=== PATIENT | male | born 1955 | race Caucasian/White ===

== ENCOUNTER 2018-10-04 16:34 | Inpatient (IN) | payer BC ==
[~2018-10-04] VITALS: Ht 180.3 cm; Wt 80.7 kg
--- NOTE | ~2018-10-04 | EXE ---
[facility] [address] [place] [address] STRESS ECHOCARDIOGRAM Name: GABE SINGH Room #: 209-P ADM IN M.R.#: [id number] Admission: 10/04/18 Attend Phys: Harrison Nicholson Discharge: Date of : 55 Date of Service: 10/05/18 1017 Report #: [id number] THIS REPORT FOR: //name// APPROVED REPORT Study performed: 10/05/2018 09:17:45 Exam: Stress Echocardiogram Indication: Chest pain Patient Location: Echo lab Stress Nurse: Reed Pike NP Room #: 209 Ht: 5 ft 11 in HR: 62 bpm BP: 124/77 mmHg Rhythm: NSR Medical History Medical History: CAD non obstructive Allergies: Iodine Cardiac Risk Factors: Strong family history Procedure The patient underwent an Exercise Stress Test using the Josef Protocol. Blood pressure, heart rate, and EKG were monitored. An Echocardiogram was performed by parts identification technician in four stages in quad fashion. At peak stress, four selected images were obtained and placed side by side with resting images for comparison. Stress Test Details Stress Test: Exercise stress testing was performed using a Josef protocol. HR Resting HR: 62 bpm Max Heart Rate (APMHR): 158 bpm Max HR Achieved: 164 bpm Target HR (85% APMHR): 134 bpm % of APMHR: 103 Recovery HR: 80 bpm HR response to stress: Normal HR response to stress BP Resting BP: 124/77 mmHg Max BP: 164/82 mmHg Recovery BP: 144/80 mmHg BP response to stress: Normal blood pressure response to stress. [facility] [address] [place] [address] STRESS ECHOCARDIOGRAM Name: GABE SINGH Room #: 209-P [facility] IN M.R.#: [id number] Admission: 10/04/18 Attend Phys: Harrison Nicholson Discharge: Date of : 55 Date of Service: 10/05/18 1017 Report #: [id number] ECG Clinical Reason for Termination: Completed protocol Exercise duration: 12 min sec Highest Stage Achieved: Stage 4: 4.2 mph at 16% grade. Exercise capacity: 13.4 METs Pre-Stress Echo The resting Echocardiogram showed normal left ventricular contractility with an estimated Ejection Fraction of about 55%. No significant valvular abnormalities. Post-Stress Echo The stress Echocardiogram showed normal left ventricular contractility with an estimated Ejection Fraction of about >70%. Conclusion Clinical Response: Non-ischemic Exercise Capacity: Superior Stress ECG Response: Non-ischemic Stress Echo Images: Non-ischemic Other Information Study Quality: Good <ELECTRONICALLY SIGNED> By: Barry Aguilar MD, FACC 10/05/18 1017 1017 Barry Aguilar MD, FACC /INF
--- NOTE | ~2018-10-04 | EKG ---
[address] [place] [address] ELECTROCARDIOGRAM REPORT Name: GABE SINGH Room #: 209-P ADM IN M.R.#: [id number] Admission: 10/04/18 Attend Phys: Harrison Britton Discharge: Date of : 55 Report #: [id number] THIS REPORT FOR: //name// [facility] ED Test Date: 2018-10-04 Test Time: 16:47:53 Pat Name: GABE SINGH Department: Room: 209 Gender: M Mailroom Manager: CHRISTIANA : 1955 Requested By: Roly Frost Order Number: [id number] MD: Miquel Titus Measurements Intervals [place] Rate: 55 P: 39 IN: 159 QRS: 19 QRSD: 102 T: 0 QT: 404 QTc: 387 Interpretive Statements Sinus bradycardia Otherwise normal tracing No previous ECG available for comparison Electronically Signed On 10-05-2018 7:48:53 [employer] by Miquel Titus [email or web address] <ELECTRONICALLY SIGNED> By: Miquel Titus MD, [facility] 10/05/18 0748 1647 1647 Miquel Titus MD, FAC /EPI
--- NOTE | ~2018-10-04 | 2DMMODE ---
[facility] [address] [place] [address] 2 D/M-MODE ECHOCARDIOGRAM Name: GABE SINGH Room #: 209-P ADM IN M.R.#: [id number] Admission: 10/04/18 Attend Phys: Harrison Nicholson Discharge: Date of : 55 Date of Service: 10/05/18911 Report #: [id number] THIS REPORT FOR: //name// APPROVED REPORT Study performed: 10/05/2018 08:37:21 EXAM: Comprehensive 2D, Doppler, and color-flow Echocardiogram Patient Location: Echo lab Room #: 209 Status: routine BSA: 2.01 HR: 52 bpm BP: 124/77 mmHg Rhythm: NSR Other Information Study Quality: Good Indications Chest Pain Hx: CAD, HLP, HTN 2D Dimensions RVDd: 38.10 mm IVSd: 8.57 (7-11mm) LVOT Diam: 22.45 (18-24mm) LVDd: 47.74 mm PWd: 8.45 (7-11mm) Ascending Ao: 39.21 (22-36mm) LVDs: 30.94 (25-40mm) Aortic Root: 39.67 mm Volumes Left Atrial Volume (Systole) Single Plane 4CH: 40.63 mL Single Plane 2CH: 44.11 mL LA ESV Index: 24.00 mL/m2 Aortic Valve AoV Peak Mendel.: 1.20 m/s AO Peak Gr.: 5.80 mmHg LVOT Max P.23 mmHg LVOT Max V: 1.03 m/s GREGORIO Vmax: 3.38 cm2 Mitral Valve E/A Ratio: 1.2 MV Decel. Time: 140.60 ms [facility] [address] [place] [address] 2 D/M-MODE ECHOCARDIOGRAM Name: GABE SINGH Room #: 209-P [facility]#: [id number] Admission: 10/04/18 Attend Phys: Harrison Nicholson Discharge: Date of : 55 Date of Service: 10/05/18 0912 Report #: [id number] MV E Max Mendel.: 0.76 m/s MV A Mendel.: 0.61 m/s MV PHT: 40.78 ms IVRT: 96.89 ms Pulmonary Valve PV Peak Mendel.: 0.96 m/s PV Peak Gr.: 3.66 mmHg Pulmonary Vein P Vein S: 0.62 m/s P Vein A: 0.28 m/s P Vein D: 0.52 m/s P Vein A Dur.: 143.0 msec P Vein S/D Ratio: 1.19 Tricuspid Valve TR Peak Mendel.: 2.08 m/s RAP Estimate: 5.00 mmHg TR Peak Gr.: 17.38 mmHg PA Pressure: 22.00 mmHg Left Ventricle The left ventricle is normal size. There is normal LV segmental wall motion. There is normal left ventricular wall thickness. Left ventricular systolic function is normal. LVEF is 55%. The left ventricular diastolic function is normal. Right Ventricle The right ventricle is normal size. The right ventricular systolic function is normal. Atria The left atrium size is normal. The right atrium size is normal. Aortic Valve The aortic valve is normal in structure. No aortic regurgitation is present. There is no aortic valvular stenosis. Mitral Valve The mitral valve is normal in structure. Mild mitral regurgitation. No evidence of mitral valve stenosis. Tricuspid Valve The tricuspid valve is normal in structure. Mild tricuspid regurgitation. Estimated PAP is 20-25mmHg. Pulmonic Valve The pulmonary valve is normal in structure. Trace pulmonic [facility] [address] [place] [address] 2 D/M-MODE ECHOCARDIOGRAM Name: FRANCISCOGABE Room #: 209-P [facility] IN M.R.#: [id number] Admission: 10/04/18 Attend Phys: Harrison Nicholson Discharge: Date of : 55 Date of Service: 10/05/18 0912 Report #: [id number] regurgitation. Great Vessels Aortic root is dilated at 4.0cm Ascending aorta is dilated at 3.9cm, maybe larger. Difficult to image IVC is normal in size and collapses >50% with inspiration. Pericardium There is no pericardial effusion. <Conclusion> Left ventricular systolic function is normal. There is normal LV segmental wall motion. LVEF 55%. The aortic valve is normal in structure. No aortic regurgitation or stenosis The mitral valve is normal in structure. Mild mitral regurgitation. Mild tricuspid regurgitation. Estimated pulmonary artery pressure of 20-25mmHg. Ascending aorta is dilated at 3.9cm, maybe larger. Difficult to image There is no pericardial effusion. <ELECTRONICALLY SIGNED> By: Miquel Titus MD, FACC 10/05/18911 1 1 Miquel Titus MD, FACC /INF
--- NOTE | ~2018-10-04 | EKG ---
[address] [address] ELECTROCARDIOGRAM REPORT Name: GABE SINGH Room #: 209-P ADM IN M.R.#: [id number] Admission: 10/04/18 Attend Phys: Harrison Britton Discharge: Date of : 55 Report #: [id number] THIS REPORT FOR: //name// [facility] Test Date: 2018-10-05 Test Time: 06:38:18 Pat Name: GABE SINGH Department: Room: 209 P Gender: M Fire Apparatus Engineer: KENDRA : 1955 Requested By: Shantelle Foster Order Number: [id number] MD: Miquel Titus Measurements Intervals [place] Rate: 56 P: 53 GA: 153 QRS: 35 QRSD: 98 T: 11 QT: 424 QTc: 410 Interpretive Statements Sinus bradycardia Otherwise normal tracing No previous ECG available for comparison Electronically Signed On 10-05-2018 7:54:57 [employer] by Miquel Titus [email or web address] <ELECTRONICALLY SIGNED> By: Miquel Titus MD, [facility] 10/05/18 0754 0638 0638 Miquel Titus MD, FAC /EPI
[2018-10-04 16:37] VITALS: BP 161/68
[2018-10-04 17:09] LABS: HEMATOCRIT 47.9 % (42.0-52.0)
[2018-10-04 17:11] LABS: ABSOLUTE NEUTROPHILS 3.7 thou/uL (1.4-8.2); BASOPHILS 1.3 % (0.0-2.0); EOSINOPHILS 3.4 % (0.0-3.0); HEMOGLOBIN 16.6 gm/dL (14.0-18.0); LYMPHOCYTES 29.3 % (24.0-44.0); MCH 31.4 pg (26.0-34.0); MCHC 34.6 g/dL (28.0-37.0); MCV 90.7 fL (80.0-100.0); MONOCYTES 7.1 % (1.0-8.0); PLATELET COUNT 228 thou/uL (150-400); POLYS 58.9 % (36.0-66.0); RBC 5.28 mil/uL (4.50-6.00); RDW 13.9 % (10.5-14.5); WBC 6.2 thou/uL (4.0-11.0)
[2018-10-04 17:19] LABS: ANION GAP 5 mmol/L (7-16); BUN 12 mg/dL (7-18); CALCIUM 9.3 mg/dL (8.5-10.1); CHLORIDE 106 mmol/L (98-107); CO2 28 mmol/L (21-32); CREATININE 0.9 mg/dL (0.7-1.3); GLUCOSE 102 mg/dL (74-106); POTASSIUM 3.7 mmol/L (3.5-5.1); SODIUM 139 mmol/L (136-145)
[2018-10-04 17:27] LABS: TROPONIN-I <0.06 ng/mL (<0.06)
[2018-10-04 18:09] VITALS: BP 161/68
[2018-10-04 18:25] VITALS: BP 142/83
[2018-10-04 20:00] VITALS: BP 150/94
[2018-10-05 00:59] VITALS: BP 119/72
[2018-10-05 04:30] VITALS: BP 124/77
[2018-10-05 04:32] LABS: CALCIUM 8.7 mg/dL (8.5-10.1); POTASSIUM 3.7 mmol/L (3.5-5.1)
[2018-10-05 04:34] LABS: CHOLESTEROL 134 mg/dL (<200); HDL CHOLESTEROL 42 mg/dL (>40); LDL CHOLESTEROL 79 mg/dL (<100); TC:HDL 3.2 Ratio (Not establshd); TRIGLYCERIDE 67 mg/dL (<150); VLDL 13 mg/dL (<40)
[2018-10-05 04:36] LABS: SERUM ASSESSMENT Clear
[2018-10-05 07:41] VITALS: BP 122/73
[2018-10-05] MEDS ORDERED: ASPIR 8181 MG PO (09:53)
[2018-10-05] MEDS ORDERED: ATORVASTATIN CA40 MG PO (09:56)
[2018-10-05 10:10] VITALS: BP 122/73
[2018-10-05 10:14] VITALS: BP 122/73
== END 2018-10-05 11:40 | disposition home or self-care (01) | DRG 392 ==
LOC: ER 16:34 → 2N 18:02 → EROBS 18:02 → 2N 18:26
PROVIDERS: Nurse Practitioner Family; Physician Assistant
DX: K21.9 Gastro-esophageal reflux disease without esophagitis (principal); I10 Essential (primary) hypertension; E78.5 Hyperlipidemia, unspecified; I25.10 Atherosclerotic heart disease of native coronary artery without angina pectoris; Z91.041 Radiographic dye allergy status; Z82.49 Family history of ischemic heart disease and other diseases of the circulatory system; I25.2 Old myocardial infarction; Z79.82 Long term (current) use of aspirin; Z79.899 Other long term (current) drug therapy
CPT/HCPCS: 10081

== ENCOUNTER 2019-03-31 02:48 | Emergency (ER) | payer BC ==
[~2019-03-31] VITALS: Ht 180.3 cm; Wt 77.1 kg
[~2019-03-31 02:48] MED LIST: ASPIR 8181 MG PO; ATORVASTATIN CA40 MG PO
[2019-03-31 03:30] LABS: ABSOLUTE NEUTROPHILS 6.5 thou/uL (1.4-8.2); BASOPHILS 0.8 % (0.0-2.0); EOSINOPHILS 2.7 % (0.0-3.0); HEMATOCRIT 48.6 % (42.0-52.0); HEMOGLOBIN 16.3 gm/dL (14.0-18.0); LYMPHOCYTES 17.3 % (24.0-44.0); MCHC 33.7 g/dL (28.0-37.0); MCV 92.2 fL (80.0-100.0); MONOCYTES 6.7 % (1.0-8.0); PLATELET COUNT 233 thou/uL (150-400); POLYS 72.5 % (36.0-66.0); RBC 5.27 mil/uL (4.50-6.00); RDW 14.3 % (10.5-14.5)
[2019-03-31 03:35] LABS: ANION GAP 7 mmol/L (7-16); BUN 18 mg/dL (7-18); CALCIUM 8.5 mg/dL (8.5-10.1); CHLORIDE 102 mmol/L (98-107); CO2 30 mmol/L (21-32); CREATININE 0.9 mg/dL (0.7-1.3); GLUCOSE 120 mg/dL (74-106); POTASSIUM 4.2 mmol/L (3.5-5.1); SODIUM 139 mmol/L (136-145)
[2019-03-31 03:45] LABS: ALBUMIN 3.9 g/dL (3.4-5.0); LIPASE 203 U/L (73-393); SGOT 39 U/L (15-37); SGPT 78 U/L (30-65); TOTAL BILIRUBIN 0.7 mg/dL (<0.1-1.0); TOTAL PROTEIN 6.8 g/dL (6.4-8.2); TROPONIN-I <0.06 ng/mL (<0.06)
[2019-03-31 05:20] LABS: URINE BILIRUBIN NEGATIVE (Negative); URINE BLOOD NEGATIVE (Negative); URINE CLARITY CLEAR; URINE COLOR YELLOW; URINE GLUCOSE-RANDOM* NEGATIVE (Negative); URINE KETONES TRACE (Negative); URINE LEUKOCYTES-REFLEX NEGATIVE (Negative); URINE NITRITE-REFLEX NEGATIVE (Negative); URINE PROTEIN (DIPSTICK) NEGATIVE (Negative)
[2019-03-31] MEDS ORDERED: TRAMADOL 50 MG50 MG PO (05:20)
[2019-03-31 05:55] VITALS: BP 152/84
--- NOTE | 2019-04-01 08:44 | EKG ---
[place] [address] [facility] [place] [address] ELECTROCARDIOGRAM REPORT Name: GABE SINGH Room #: DEP Ko#: [id number] ������������������ Admission: 03/31/19 ������������������ Attend Phys: Discharge: 03/31/19 ������������������ Date of : 55 Report #: [id number] ����������������������������������������������������������������� [id number] THIS REPORT FOR: //name// [facility] ED Test Date: 2019-03-31 Test Time: 03:56:17 Pat Name: GABE SINGH Department: Room: Gender: Surgical Dental Assistant: Lino Ko : 1955 Requested By: Martín Anguiano Order Number: [id number] MD: Bruce Grider Measurements Intervals [place] Rate: 52 P: 56 NM: 161 QRS: 33 QRSD: 106 T: 18 QT: 443 QTc: 412 Interpretive Statements Sinus rhythm Compared to ECG 10/05/2018 06:38:18 Sinus bradycardia no longer present Electronically Signed On 04-01-2019 8:44:13 CDT by Bruce Grider [email or web address] ��������������������������������������������� <ELECTRONICALLY SIGNED> ���������������������������������������� By: Bruce Grider MD ��������������������������������������������� 04/01/19 0844 [id number] 0356 Bruce Grider MD /ROSANNE
== END 2019-03-31 05:56 | disposition home or self-care (01) ==
LOC: ER 02:48
PROVIDERS: Emergency Medicine
DX: K59.00 Constipation, unspecified (principal); E78.5 Hyperlipidemia, unspecified; I10 Essential (primary) hypertension; Z91.041 Radiographic dye allergy status; Z95.5 Presence of coronary angioplasty implant and graft